=== PATIENT | male | born 1960 | race Caucasian/White ===

== ENCOUNTER 2018-07-24 19:51 | Emergency (ER) | payer BC ==
[2018-07-24] MEDS ORDERED: DIPHENHYDRAMINE HCL 50 MG/ML VIAL IVP ONE (20:06)
[2018-07-24] MEDS ORDERED: METOCLOPRAMIDE HCL 10 MG/2 ML VIAL IVP ONE (20:06)
[2018-07-24] MEDS ORDERED: KETOROLAC 30 MG/ML VIAL IVP ONE (20:06)
--- NOTE | 2018-07-24 20:12 | Emergency Department Record ---
History of Present Illness - General Chief Complaint: Headache Migraine Stated Complaint: HEADACHE 2-3 DAYS ,STIFF NECK Time Seen by Provider: 07/24/18 20:05 Source: Patient Mode of Arrival: Ambulatory Limitations: No limitations - History of Present Illness Initial Comments: 57 yo male presents to ED for evaluation of right sided neck and headache pain symptoms for the past 2-3 days. Patient reports a history of musculoskeletal pain issues to the right neck following radical neck resection for melanoma 3 months ago. Patient reports pain with movement of the neck [id number], less pain with neck flexion/extension. Patient denies fevers, chills, nausea, or vomiting symptoms. Patient also reports recent follow-up MRI of the head 5 days ago, reports that his MRI result appeared stable from previous. MD Complaint: Headache, Other (neck pain) Onset/Timin -: Days(s) Onset Description: Awoke with symptoms Location: Diffuse Severity: Severe Severity scale (1-10): 4 Quality: Aching Consistency: Constant Improves With: Medication Worsens With: Exertion/activity, Movement of head/neck Context: Close contacts with similar symptoms Associated Symptoms: Neck stiffness Treatments Prior to Arrival: Acetaminophen, Ibuprofen - Related Data Home Medications Medication Instructions Recorded Confirmed Last Taken Losartan Potassium [Cozaar] 100 mg PO 07/24/18 Unknown Methylphenidate HCl 20 mg PO 07/24/18 07/24/18 Unknown [Methylphenidate ER] Allergies Allergy/AdvReac Type Severity Reaction Status Date / Time DAVID Inhibitors AdvReac SHORTNESS Verified 07/24/18 20:09 OF BREATH amlodipine AdvReac SKIN Verified 07/24/18 20:09 IRRITATION Travel Screening - Travel/Exposure Within Last 30 Days Have you traveled within the last 30 days?: No - Travel Symptoms Symptom Screening: Headache, Joint & Muscle Aches Review of Systems Constitutional: Denies: Chills, Fever, Malaise, Night sweats Eyes: Denies: Eye discharge, Eye pain ENT: Denies: Congestion, Ear pain, Epistaxis Respiratory: Denies: Cough, Dyspnea Cardiovascular: Denies: Chest pain, Dyspnea on exertion Endocrine: Denies: Fatigue, Heat or cold intolerance Gastrointestinal: Denies: Abdominal pain, Nausea, Vomiting Genitourinary: Denies: Incontinence, Retention Musculoskeletal: Reports: Neck pain. Denies: Arthralgia, Back pain, Gout, Joint swelling Skin: Denies: Bruising, Change in color Neurological: Reports: Headache. Denies: Abnormal gait, Confusion, Seizure Psychiatric: Denies: Anxiety Hematological/Lymphatic: Denies: Anemia, Blood Clots Physical Exam - General General Appearance: Alert, Oriented x3, Cooperative, Mild distress Limitations: No limitations - Head Head exam: Atraumatic, Normocephalic, Normal inspection Head exam detail: negative: Abrasion, Contusion, Alanis's sign, General tenderness, Hematoma, Laceration - Eye Eye exam: Normal appearance. negative: Conjunctival injection, Periorbital swelling, Periorbital tenderness, Scleral icterus - ENT Ear exam: negative: Auricular hematoma, Auricular trauma Nasal Exam: negative: Active bleeding, Discharge, Dried blood, Foreign body Mouth exam: negative: Drooling, Laceration, Muffled voice, Tongue elevation - Neck Neck exam: Tenderness, Other (There is fullness of the SCM right, post- operative changes appear well healed without signs of infection. There is reproducible pain with head motion [id number].). negative: Meningismus - Respiratory Respiratory exam: Normal lung sounds bilaterally. negative: Rales, Respiratory distress, Rhonchi, Stridor - Cardiovascular Cardiovascular Exam: Regular rate, Normal rhythm, Normal heart sounds - GI/Abdominal GI/Abdominal exam: Soft. negative: Rebound, Rigid, Tenderness - Rectal Rectal exam: Deferred - exam: Deferred - Extremities Extremities exam: Normal inspection. negative: Pedal edema, Tenderness - Back Back exam: Denies: CVA tenderness (R), CVA tenderness (L) - Neurological Neurological exam: Alert, Normal gait, Oriented X3 - Psychiatric Psychiatric exam: Normal affect, Normal mood - Skin Skin exam: Normal color. negative: Abrasion Type of lesion: negative: abrasion Course Vital Signs 07/24/18 19:54 Pulse Rate 77 Respiratory 22 Rate Blood Pressure 153/84 Pulse Ox 99 - Reevaluation(s) Reevaluation #1: 07/24/18 20:40 Laboratory studies were reviewed and are grossly unremarkable for an acute process. Reevaluation #2: 07/24/18 22:06 CT Neck: Loss of facial places [id number] right No acute abnormality identified Patient was updated on all results, reports that his headache and throbbing neck symptoms are significantly improved. LP is not felt to be indicated based on my examination of the patient. I did discuss this with the patient and he is in agreement with the plan of care as discussed. Patient appears stable for discharge at this time. Medical Decision Making - Lab Data Result diagrams: 07/24/18 20:15 07/24/18 20:15 Disposition Disposition: Discharge Clinical Impression: Headache Qualifiers: Headache type: unspecified Headache chronicity pattern: acute headache Intractability: not intractable Qualified Code(s): R51 - Headache Disposition: Home, Self-Care Condition: (2) Stable Instructions: Acute Headache (ED) Additional Instructions: Return to ED if your symptoms worsen or if you have any concerns. Follow-up with your family doctor in 3-5 days as directed. Forms: Patient Portal Access Time of Disposition: 22:06 Quality - Quality Measures Quality Measures: N/A - Blood Pressure Screening Does Patient Have Any of the Following: No Blood Pressure Classification: Pre-Hypertensive BP Reading Systolic Measurement: 153 Diastolic Measurement: 84 Screening for High Blood Pressure: < Pre-Hypertensive BP, F/U Documented > [ [id number]] Pre-Hypertensive Follow-up Interventions: Referral to alternative/primary care provider.
[2018-07-24 20:22] LABS: BASO % 0.4 % (0-6); EOS % 6.7 % (0-6); GRAN % 61.8 % (47-80); HEMATOCRIT 41.4 % (42.0-52.0); HEMOGLOBIN 14.3 gm/dl (14.0-18.0); MEAN CELL VOLUME 84.5 fl (81-97); MEAN CORPUSCULAR HEMOGLOBIN 29.2 pg (27-33); MEAN CORPUSCULAR HGB CONC 34.5 g/dl (32-36); MEAN PLATELET VOLUME 9.3 fl (7.4-10.4); MONO % 7.1 % (0-9); PLATELET COUNT 257 K/uL (130-400); RED CELL DISTRIBUTION WIDTH 12.1 % (11.5-14.5); WHITE BLOOD COUNT W/O DIFF 4.9 K/uL (4.2-12.2)
[2018-07-24 20:32] LABS: BLOOD UREA NITROGEN 8 mg/dL (6-20); CREATININE 0.6 mg/dL (0.7-1.2); EST GLOMERULAR FILTRATION RATE > 60 mL/min
[2018-07-24 20:33] LABS: TOTAL PROTEIN 7.5 g/dL (6.6-8.7)
[2018-07-24 20:35] LABS: GLUCOSE,RANDOM 134 mg/dL (74-109)
[2018-07-24 20:37] LABS: ALT/SGPT 18 U/L (<41); AST/SGOT 15 U/L (10.0-50.0)
[2018-07-24 20:38] LABS: ALB/GLOB RATIO 1.4 (1.1-1.8); ALBUMIN 4.4 g/dL (4.0-5.0); ALKALINE PHOSPHATASE 61 U/L (55-149)
[2018-07-24] MEDS ORDERED: 0.9 % SODIUM CHLORIDE 1000ML 500 ML IV SCH (20:45)
[2018-07-24] MEDS ORDERED: DIAZEPAM (VALIUM) 5MG/ML **10ML VIAL IVP ONE (21:27)
== END 2018-07-24 22:11 | disposition home or self-care (01) ==
LOC: ER 19:51
DX: R51 Headache (principal); M54.2 Cervicalgia; M43.6 Torticollis
CPT/HCPCS: 99284 ×2; 96374; 96375; 85025; 80053; 70491; Q9967; J1885; J3360; J1200; J2765; J7030